=== PATIENT | female | born 1995 | race Caucasian/White ===

== ENCOUNTER 2023-09-11 18:12 | Emergency (ER) | payer MEDICAID ==
[~2023-09-11] VITALS: Ht 160 cm; Wt 52.7 kg
[2023-09-11 18:30] VITALS: TEMP 98.3
[2023-09-11] MEDS ORDERED: CEPH-585 PO (18:40)
[2023-09-11] MEDS: TETanus/Pertussis (Acell)/Diphther VAC/PF (Tdap-Adult) 0.5ml syringe IMVAC ONE (18:55)
[2023-09-11] MEDS: LIDOcaine 1% 30ml preserv. free vial SQ STA (18:56)
[2023-09-11 19:29] VITALS: BP 110/82; PULSE 81; RESP 14; O2SAT 99
== END 2023-09-11 20:39 | disposition home or self-care (01) ==
LOC: ER 18:13
DX: S61.011A Laceration without foreign body of right thumb without damage to nail, initial encounter (principal); Z79.2 Long term (current) use of antibiotics; W26.8XXA Contact with other sharp object(s), not elsewhere classified, initial encounter; Y93.89 Activity, other specified; Y92.89 Other specified places as the place of occurrence of the external cause; Y99.8 Other external cause status
CPT/HCPCS: 12001; 90471; 90715; 99283